=== PATIENT | male | born 1965 | race Caucasian/White ===

== ENCOUNTER 2025-01-08 14:37 | Inpatient (IN) | payer SELFPAY ==
[2025-01-08 14:40] VITALS: BP 175/100; PULSE 99; RESP 16; TEMP 36.8; O2SAT 98
--- NOTE | 2025-01-08 15:16 | ECG_ITS ---
[facility] Test Date: 2025-01-08 Pat Name: Jose Lewis Department: Room: Gender: Male Set Up Person: : 1965 Requested By: Jatin Cates Order Number: [id number] Reading MD: LUCIANO LEUNG Measurements Intervals [place] Rate: 100 P: 53 SC: 157 QRS: -34 QRSD: 81 T: 63 QT: 337 QTc: 435 Interpretive Statements SINUS TACHYCARDIA LEFT AXIS DEVIATION [QRS AXIS < -30] No previous ECG available for comparison Electronically Signed On 01-08-2025 23:08:45 CDT by LUCIANO LEUNG [id number]
--- NOTE | 2025-01-08 16:39 | PC.NURSE ---
Pt taken to room with sister and male family member present. Pts sister pulled me aside and states, I meant to tell you he needs to go to the stress unit not rehab. He put a gun to his head today. I forgot to tell you that. Provider notified. Pt taken to room 9 with sitter. Primary nurse made aware of situation.
--- NOTE | 2025-01-08 16:54 | XRR_ITS ---
PROCEDURE INFORMATION: Exam: XR Left Shoulder Exam date and time: 01/08/2025 4:57 PM Age: 59 years old Clinical indication: Pain; Shoulder; Left; Additional info: Fall/pain TECHNIQUE: Imaging protocol: Radiologic exam of the left shoulder. Views: 2 or more views. COMPARISON: CR XR chest 1V portable [id number] 11/10/2024 16:56 FINDINGS: Bones/joints: Jjto-xo-hjpodzty osteoarthritic/degenerative changes as evidenced by spurring are noted about the acromioclavicular/AC joint. These are similar to the prior portable chest plain film from 11/10/2024 Soft tissues: Snap artifact overlies the upper left chest region. XR/XR shoulder LT min 2V* [id number] IMPRESSION: 1. No acute osseous plain-film findings of the left shoulder. 2. Atql-ep-zqtdkxwu degenerative changes at the AC joint.
--- NOTE | 2025-01-08 16:54 | XRR_ITS ---
PROCEDURE INFORMATION: Exam: XR Chest Exam date and time: 01/08/2025 4:56 PM Age: 59 years old Clinical indication: Pain; Chest pressure; Additional info: Chest pain TECHNIQUE: Imaging protocol: Radiologic exam of the chest. Views: 1 view. COMPARISON: No relevant prior studies available. FINDINGS: Lungs: Lungs appear to be grossly clear. No consolidation. Pleural spaces: Costophrenic angles are well demarcated. No pleural effusion. No pneumothorax. Heart/Mediastinum: There is mild widening of the superior mediastinum noted to be present. Cardiac silhouette is in the range of normal. Bones/joints: Mild convexity of the thoracic spine is directed to the right with degenerative spurring seen particularly along its mid to lower aspects. Other findings: The gastric air bubble may be displaced medially question splenomegaly. XR/XR chest 1V portable [id number] IMPRESSION: 1. Mild widening of the superior mediastinum with no prior studies available for comparison and further correlation and follow-up suggested in order to exclude adenopathy. 2. Suspected splenomegaly.
--- NOTE | 2025-01-08 16:55 | ED_ITS ---
HPI - General Adult 2 General: Chief complaint: Extremity Problem,Nontraumatic Stated complaint: stroke like symptoms Time Seen by Provider: 01/08/25 16:40 Source: patient and family Mode of arrival: wheelchair Limitations: no limitations History of Present Illness: Patient is a 59-year-old male who presents to ED today with multiple complaints. Apparently he was initially triaged as a strokelike symptoms given some left arm numbness he had complained about at time of arrival. He then later complained of chest pain and was a heart attack rule out but then later tells me he is intoxicated and has a history of chronic alcohol abuse and is suicidal and needs to be admitted to NPU. Patient tells me he has been having intermittent paresthesias to his left arm that has been present for quite a while . He does report a fall approximately 4 to 5 days ago onto the left shoulder and has had pain here since. Denies striking his head or LOC. He apparently had a brief episode of chest pain on the way to the emergency department but is asymptomatic at time of my examination. He is visibly intoxicated during my initial encounter. Family states he is chronically depressed. He reportedly had a gun to his mouth earlier this morning and almost pulled the trigger but family was able to take the gun. Onset (ago): unknown (chronicity varies depending on complaint) Relieving factors: none Exacerbating factors: other (movement of L shoulder reproduces pain) Associated symptoms: Reports chest pain (none now); Deny confusion, dyspnea, headache(s), malaise, nausea, rash, palpitations, syncope or vomiting Treatments prior to arrival: none Related Data Allergies Allergy/AdvReac Type Severity Reaction Status Date / Time No Known Allergies Allergy Verified 01/08/25 14:48 Review of Systems 2 Const: Denies: fever(s), chills, body aches, fatigue or malaise Eyes: Denies: change in vision, blurry vision, photophobia, floaters or seeing flashes Card: Reports: chest pain (none now); Denies: palpitations, irregular heart rhythm, edema, swelling of feet/ankles, lightheadedness, syncope, pre-syncope, dyspnea on exertion, orthopnea, leg pain with exertion or acrocyanosis Resp: Denies: dyspnea, productive cough or pain on inspiration GI: Denies: abdominal pain, nausea, vomiting, heartburn or diarrhea : Denies: difficulty urinating or dysuria Musc: Reports: extremity pain (L arm) and joint pain (L shoulder); Denies: neck pain, back pain or extremity swelling Skin/Breast: Denies: rash Neuro: Reports: sensory changes (intermittent paresthesias left arm); Denies: headache(s), weakness in extremities, lack of coordination, difficulty walking, frequent falls, dizziness, confusion or Slurred speech present Physical Exam 2 Const: COMMON NORMALS: no acute distress, average body habitus, patient oriented x3, healthy appearing, alert and well nourished GENERAL APPEARANCE: cooperative and other (intoxicated) ORIENTATION/CONSCIOUSNESS: Yes awake, Yes oriented to person, Yes oriented to place and Yes oriented to time HENMT: COMMON NORMALS: normocephalic and atraumatic HEAD & SCALP: normal to inspection, normocephalic and atraumatic FACE & SINUS: normal facial exam and face symmetric Eye: COMMON NORMALS: Equal, round and reactive pupils present and EOMs intact bilaterally GENERAL EYE: appearance normal, both eyes and all related structures and normal light reflex PUPIL: Yes Equal, round and reactive pupils present DIRECT OPHTHALMOSCOPY: Yes normal light reflex Neck/C-Spine: COMMON NORMALS: full ROM and no lymphadenopathy GENERAL: Yes normal visual inspection Chest: COMMONS NORMALS: normal inspection of the chest and normal palpation of entire chest wall Resp: COMMON NORMALS: normal respiratory effort and clear to auscultation bilaterally AUSCULTATION: clear to auscultation bilaterally Cardio: COMMON NORMALS: regular rate and regular rhythm RATE: regular rate RHYTHM: regular rhythm GI: COMMON NORMALS: Normal to inspection, nondistended, normoactive bowel sounds present, Soft to palpation, non-tender and no masses PALPATION: Yes Soft to palpation Back/Pelvis: COMMON NORMALS: thoracic and lumbar spine normal to inspection and no thoracic nor lumbar tenderness Extremity: COMMON NORMALS: normal to inspection, full ROM, capillary refill normal, no joint enlargement, no clubbing, cyanosis or edema, no calf tenderness and no pedal edema GENERAL: Yes normal exam except as noted LEFT UPPER EXTREMITY: Yes shoulder joint (TTP with palpation and ROM of shoulder; no deformities noted) Left shoulder joint: Yes neurovascular exam (normal) Neuro: COMMON NORMALS: patient oriented x3, moves all extremities, no focal motor deficits, no sensory deficits noted and gait normal S ENSORIUM/ORIENTATION: Yes alert, Yes oriented to person, Yes oriented to place and Yes oriented to time OTHER: NIH 0. States he is not having L arm paresthesias currently Skin: COMMON NORMALS: no rashes or lesions noted GENERAL SKIN EXAM: no rashes or lesions noted Course 2 Vital Signs: Vital signs: Vital Signs Temperature 98.3 F 01/08/25 14:40 Pulse Rate 99 01/08/25 14:40 Respiratory Rate 16 01/08/25 14:40 Blood Pressure 175/100 01/08/25 14:40 Pulse Oximetry 98 01/08/25 14:40 Oxygen Delivery Me thod Room Air 01/08/25 14:40 MDM - General Adult Medical Decision Making Patient's NIH is 0. He has not had any chest pain during his stay here. His EKG is nonischemic. His baseline troponin is normal. CXR official radiology read does mention mild widening of the superior mediastinum with correlation to exclude adenopathy-had reported no previous comparison films but it looks like we do have back in 2010 and I do not visualize any change. Patient is cleared medically. He was placed on a 96-hour hold for his depression and suicidal ideations. Patient will be admitted to Dr. Schwartz to NPU. Medical Records I reviewed the patient's medical records. Lab Data I reviewed the patient's lab results. 01/08/25 17:26 01/08/25 17:26 Radiology Impressions Chest X-Ray 01/08/25 16:54 IMPRESSION: 1. Mild widening of the superior mediastinum with no prior studies available for comparison and further correlation and follow-up suggested in order to exclude adenopathy. 2. Suspected splenomegaly. Shoulder X-Ray 01/08/25 16:54 IMPRESSION: 1. No acute osseous plain-film findings of the left shoulder. 2. Reul-zv-darakctx degenerative changes at the AC joint. Laboratory Results WBC 4.86 10^3/uL (3.29-11.43) 01/08/25 17: RBC 5.39 10^6/uL (3.85-5.65) 01/08/25 17: Hgb 16.60 g/dL (11.27-16.99) 01/08/25 17: Hct 49.0 % (37-53) 01/08/25 17:26 MCV 90.9 fl (82-101) 01/08/25 17:26 MCH 30.8 pg (27-33) 01/08/25 17:26 MCHC 33.9 g/dL (30-55) 01/08/25 17:26 RDW 13.8 % (12.1-15.1) 01/08/25 17:26 Plt Count 286 10^3/cmm (157-399) 01/08/25 17:26 MPV 8.9 fL (7.4-10.4) 01/08/25 17:26 Neut % (Auto) 47.4 % 01/08/25 17:26 Lymph % (Auto) 39.3 % 01/08/25 17:26 [place] % (Auto) 11.9 % 01/08/25 17:26 Eos % (Auto) 0.2 % 01/08/25 17:26 Baso % (Auto) 0.8 % 01/08/25 17:26 Neut # (Auto) 2.30 10^3/uL (1.8-7.7) 01/08/25 17:26 Lymph # (Auto) 1.9 10^3/uL (0.8-4.8) 01/08/25 17:26 [place] # (Auto) 0.6 10^3/uL (0.2-0.9) 01/08/25 17:26 Eos # (Auto) 0.0 10^3/uL (0.0-0.8) 01/08/25 17:26 Baso # (Auto) 0.0 10^3/uL (0.0-0.1) 01/08/25 17:26 Nucleated RBC % (auto) 0 % 01/08/25 17:26 Nucleated RBCs # 0.0 /100WBC 01/08/25 17:26 Sodium 144 mmol/L (136-145) 01/08/25 17:26 Potassium 4.2 mmol/L (3.5-5.1) 01/08/25 17:26 Chloride 103 mmol/L (98-107) 01/08/25 17:26 Carbon Dioxide 22 mmol/L (22-29) 01/08/25 17:26 Anion Gap 23.2 (5-19) H 01/08/25 17:26 BUN 4 mg/dL (8-23) L 01/08/25 17:26 Creatinine 0.8 mg/dL (0.7-1.2) 01/08/25 17:26 GFR Calculation 98.6 mL/min (90-130) 01/08/25 17:26 Glucose 126 mg/dL (65-115) H 01/08/25 17:26 Calculated Osmolality 296 mOsm/kg (285-295) H 01/08/25 17:26 Calcium 8.9 mg/dL (8.5-10.5) 01/08/25 17:26 Total Bilirubin 0.3 mg/dL (0.15-1.2) 01/08/25 17:26 AST 62 U/L (0-40) H 01/08/25 17:26 ALT 65 U/L (0-41) H 01/08/25 17:26 Alkaline Phosphatase 116 U/L (40-130) 01/08/25 17:26 Troponin T Baseline 8 ng/L (0-15) 01/08/25 17:26 Total Protein 7.6 g/dL (6.6-8.7) 01/08/25 17:26 Albumin 4.6 g/dL (3.5-5.2) 01/08/25 17:26 Globulin 3.0 g/dL (1.3-4.6) 01/08/25 17:26 Salicylates < 0.3 mg/dL (3-10) L 01/08/25 17:26 Acetaminophen < 5.0 ug/mL (10-30) L 01/08/25 17:26 Ethyl Alcohol 329 mg/dL (0-10) H* 01/08/25 17:26 All radiology interpretation(s) finalized by discharge Discharge Plan Discharge Patient Disposition: Admitted As Inpatient Clinical Impression: Depression, Suicidal ideation, Paresthesia of left arm, Injury of left shoulder, Chronic alcohol abuse Condition: Stable Coding Level of Care Code ED An[employer] 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
--- NOTE | 2025-01-08 17:10 | PC.NURSE ---
96 hour hold rights read and reviewed with patient. Mario from security present during reading of rights. Patient verbalized understandings. Patient repeated over and over during reading of rights I cant do needles, you cant take my blood. This is why I am the town drunk not a druggy i just cant do needles. I don't want you to take my blood. This nurse told patient that we will have to get blood, but will come back. This nurse and Mario did dress patient out into green scrubs and placed patient belongings in locker.
--- NOTE | 2025-01-08 17:17 | ECG_ITS ---
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
[2025-01-08] MEDS: acetaminophen 500 mg Tablet 1000 MG PO (17:50)
[2025-01-08 17:54] LABS: Basophils % 0.8 %; Eosinophils % 0.2 %; Lymphocytes # 1.9 10^3/uL (0.8-4.8); Lymphocytes % 39.3 %; Mean Corpuscular HGB Conc 33.9 g/dL (30-55); Mean Corpuscular Hemoglobin 30.8 pg (27-33); Mean Corpuscular Volume 90.9 fl (82-101); Mean Platelet Volume 8.9 fL (7.4-10.4); Monocytes # 0.6 10^3/uL (0.2-0.9); Monocytes % 11.9 %; Neutrophils % 47.4 %; Nucleated Red Blood Cells % 0 %; Platelet Count 286 10^3/cmm (157-399); Red Blood Count 5.39 10^6/uL (3.85-5.65); Red Cell Distribution Width 13.8 % (12.1-15.1); White Blood Count 4.86 10^3/uL (3.29-11.43)
[2025-01-08 17:59] LABS: Troponin(5th) Baseline 8 ng/L (0-15)
[2025-01-08 18:01] LABS: Alanine Aminotransferase 65 U/L (0-41); Albumin Level 4.6 g/dL (3.5-5.2); Alkaline Phosphatase 116 U/L (40-130); Aspartate Amino Transferase 62 U/L (0-40); Blood Urea Nitrogen 4 mg/dL (8-23); Calcium 8.9 mg/dL (8.5-10.5); Carbon Dioxide 22 mmol/L (22-29); Chloride 103 mmol/L (98-107); Glomerular Filtration Rate 98.6 mL/min (90-130); Glucose 126 mg/dL (65-115); Osmolality Calculated 296 mOsm/kg (285-295); Sodium 144 mmol/L (136-145); Total Bilirubin 0.3 mg/dL (0.15-1.2); Total Protein 7.6 g/dL (6.6-8.7)
[2025-01-08 18:11] LABS: Acetaminophen < 5.0 ug/mL (10-30); Alcohol Level 329 mg/dL (0-10); Anion Gap 23.2 (5-19); Potassium 4.2 mmol/L (3.5-5.1); Salicylate < 0.3 mg/dL (3-10)
--- NOTE | 2025-01-08 18:54 | ECG_ITS ---
[facility]08 Pat Name: Jose Lewis Department: Room: Gender: Male Vp Client Services: : 1965 Requested By: Samantha Granda Order Number: [id number] Reading MD: LUCIANO LEUNG Measurements Intervals [place] Rate: 82 P: 61 WI: 157 QRS: -2 QRSD: 84 T: 48 QT: 367 QTc: 429 Interpretive Statements SINUS RHYTHM Compared to ECG 01/08/2025 17:17:17 Sinus tachycardia no longer present Left-axis deviation no longer present Electronically Signed On 01-08-2025 23:09:19 CDT by LUCIANO LEUNG [email or web address] [id number]
[2025-01-08 19:19] LABS: Amphetamines Screen Urine Negative (Negative); Barbiturates Screen Urine Negative (Negative); Benzodiazepines Screen Urine Negative (Negative); Cocaine Screen Urine Negative (Negative); Opiate Screen Urine Negative (Negative); PCP Screen Urine Negative (Negative); THC Screen Urine Negative (Negative)
--- NOTE | 2025-01-08 19:43 | PC.NURSE ---
Serial troponins cancelled per verbal order of Kalee ANTONIO.
[2025-01-08 19:58] VITALS: BP 161/67; PULSE 88; RESP 17; O2SAT 94
--- NOTE | 2025-01-08 20:19 | PC.NURSE ---
Nursing staff attempted to call report to NPU twice.
[2025-01-08 20:31] VITALS: BP 161/67; PULSE 88; O2SAT 94
[2025-01-08 21:19] VITALS: BP 138/93; PULSE 109; RESP 20; TEMP 36.8; O2SAT 92
[2025-01-08] MEDS: nicotine 4 mg lozenge MUCOUS MEM (21:43)
[2025-01-09] VITALS: BP 156/94; PULSE 73; RESP 18; O2SAT 97
[2025-01-09 04:00] VITALS: BP 173/91; PULSE 62; RESP 18; O2SAT 96
[2025-01-09 08:00] VITALS: BP 179/91; PULSE 63; RESP 18; TEMP 36.8; O2SAT 94
[2025-01-09] MEDS: folic acid 1 mg Tablet PO (08:16)
[2025-01-09] MEDS: thiamine 100 mg Tablet PO (08:16)
[2025-01-09] MEDS: multivitamin therapeutic Tablet 1 TAB PO (08:16)
[2025-01-09] MEDS: ondansetron 4 MG Tablet PO (08:16)
[2025-01-09] MEDS: LORazepam 2 mg Tablet PO (11:59)
[2025-01-09 12:00] VITALS: BP 164/88; PULSE 70; RESP 18; TEMP 37; O2SAT 99
[2025-01-09] MEDS: nicotine 4 mg lozenge MUCOUS MEM (13:15)
[2025-01-09 16:00] VITALS: BP 162/97; PULSE 81; RESP 18; TEMP 37; O2SAT 96
--- NOTE | 2025-01-09 16:51 | P.NPUHP_ITS ---
Providers/Chief Complaint 2 Admitting Physician: Hayden Schwartz MD Chief Complaint: stroke like symptoms HPI NPU History of Present Illness Jose Lewis is a 59 year old male with no previous history of inpatient psychiatric hospitalization who presented with a blood alcohol level of 329 to the emergency department at [facility]. He had initially presented with complaints of left arm numbness and chest pain and paresthesia in his left arm. Later during the evaluation the family members had stated that the patient was depressed and that he had taken a gun and placed it to his mouth earlier in the morning and had to be convinced not to pull the trigger. The patient on interview reports that he has been consuming alcohol since he was an adolescent. He reports the longest period of sobriety has been months. He reports drinking approximately 2 pints on a daily basis and reports an increase in tolerance over the past few months. He was not able to endorse any reason he is consuming more alcohol. He reports that he does have cravings for alcohol but states that his cravings for oral tobacco are more prominent. He denies any illicit drug use. He minimized any suicidal thoughts stating that he may have put a gun to himself but states that he has no recollection of this event. He denies any feelings of hopelessness or worthlessness. He reports that he realizes that the alcohol has prevented him from maintaining a job. He reports that efforts to cut down have largely been unsuccessful. He reports that he does not wish to consider any treatment for alcohol at this time and states that this episode will simply teach him to never drink again. He denies any history of boyd. He denies any history of auditory hallucinations or visual hallucinations. He reports having some adverse consequences from alcohol use including elevated liver function test. He reports no history of panic attacks. He denies any history of anxiety. He denies any feelings of hopelessness or worthlessness. He reports no sleep continuity disruption. He denied any symptoms suggestive of posttraumatic stress disorder. He had reported that he has had some occasional tremors while attempting to stop alcohol but denied any history of seizures. He had reported a history of blackouts. Psychiatric history: He reports no history of inpatient substance abuse or inpatient psychiatric treatment. He reports no previous medication trials or treatment for depression or anxiety. Substance abuse history: He reports a history of continued alcohol use for more than 40 years with a reported history of blackouts and no reported history of seizures. He reports no history of drug or alcohol treatment either inpatient or outpatient. He denies any history of opiate use, stimulant abuse, benzodiazepine abuse or hallucinogen abuse. Medical history: Recent injury to left shoulder with paresthesia of left arm Surgical history: None Allergies: No known drug allergies Legal history: Denies Medications: None Family psychiatric history: Alcoholism Social history: Patient was born in [place] and raised by his biological parents. He reports when his parents had split up his father had raised him and his siblings. He had reported no history of sexual physical or emotional abuse. He reported that he had no problems with learning in school but states that he dropped out of school in the eighth grade. He states he had been previously 1 time and has multiple kids as young as 15 and many in adulthood currently. He reports that [facility] and is unemployed. He reports that he is not on disability and reports that he has struggled with maintaining work. Meds NPU Home Medications ?Medication ?Instructions ?Recorded ?Confirmed ?Last Taken ?Type No Known Home Medications 01/09/2512/29 Unknown History Allergies Allergy/AdvReac Type Severity Reaction Status Date / Time No Known Allergies Allergy Verified 01/08/25 14:48 Mental Status Exam 2 MSE Comments: Patient had a anthony complexion with poor hygiene and a steady gait. There was no evidence of any abnormal involuntary motor movements, tics, or tremors appreciated. His speech was normal in regards to rate, rhythm, and prosody. His mood was described as okay. His affect was slightly restricted in range and mood incongruent. His thought process was linear, logical, and goal-directed. His thought content revealed no suicidal or homicidal ideation. He denied any auditory or visual hallucinations. He did not appear to be responding to internal stimuli. There was no evidence of delusional thinking. His attention span appeared fair. His recent and remote memory appeared grossly intact. He was alert and oriented to person, place, and time. His insight is poor. His judgment is poor. His impulse control appeared limited. Vitals/I&O/Wt Last Vital Signs Temp 98.6 F 01/09/25 12:00 Pulse 70 01/09/25 12:00 Resp 18 01/09/25 12:00 BP 164/88 01/09/25 12:00 Pulse Ox 99 01/09/25 12:00 O2 Del Method Room Air 01/08/25 21:16 Weight last 48 hrs Weight 81.647 kg Data NPU 01/08/25 17:26 01/08/25 17:26 A&P Assessment and plan (1) Adjustment disorder with depressed mood: (2) Suicidal ideation: (3) Chronic alcohol abuse: Plan 59-year-old male with alcohol abuse with limited insight and minimal motivation currently to consider alcohol treatment despite adverse consequences. He remains here on a 96-hour hold and will be monitored for alcohol withdrawal symptoms at this time. #1.? Engage patient in individual milieu and group therapy. #2?? Recommend sober living treatment at the highest level of care to which the patient is willing to commit #3??? CIWA for alcohol withdrawal #4?? TO-15 minute checks? #5?? Will attempt to gather collateral information, evaluate carefully while on a 96 hour hold. PDMP PDMP Reviewed: Not Reviewed Involuntary Hold Information 2 Hold Status: Legal Status: 96 Hour Hold Date/Time Hold Expires: 01/14/2025 1655 Attestations NPU 2 Medical Necessity Statement*: Inpatient hospitalization is medically necessary and deemed to be the clinically appropriate intervention at this time. Medications will be adjusted and initiated as indicated.? The patient will be hospitalized for at least 2 midnights.? The patient?s likely length of stay is 2-3 days. ? Coding Level of Care Code Acute Code for Chg Fwd Diagnoses Adjustment disorder with depressed mood F43.21 Suicidal ideation R45.851 Chronic alcohol abuse F10.10
[2025-01-09 20:00] VITALS: BP 162/90; PULSE 92; RESP 19; TEMP 36.8; O2SAT 99
[2025-01-10] VITALS (7 sets, daily range): BP systolic 109–170; BP diastolic 77–100; PULSE 59–80; RESP 17–18; TEMP 36.6–36.8; O2SAT 95–98
[2025-01-10] MEDS: thiamine 100 mg Tablet PO (08:37)
[2025-01-10] MEDS: folic acid 1 mg Tablet PO (08:37)
[2025-01-10] MEDS: multivitamin therapeutic Tablet 1 TAB PO (08:37)
[2025-01-10] MEDS: nicotine 2 mg Gum BUCCAL ×2 (08:44→18:00)
[2025-01-10] MEDS: cloNIDine 0.1 mg Tablet 0.2 MG PO (09:32)
--- NOTE | 2025-01-10 09:53 | PC.NURSE ---
Pt has been having elevated bp readings. The reading at approx 0700 was 170/95. Dr. Schwartz ordered a one time 0.2mg. Will recheck bp reading.
--- NOTE | 2025-01-10 16:46 | P.NPUPN_ITS ---
Subjective NPU 2 Subjective: 59-year-old male admitted with alcohol d ependence with a blood alcohol level of 319. The patient continued minimize any problems with alcohol related withdrawal despite a change in blood pressure and some increased tremor reported. The patient had stated that he would simply stop alcohol by never drinking again and continued to reiterate that he did not wish to consider any alcohol treatment through therapy or through groups. He reported no suicidal thoughts currently. He had reported that he was feeling better. He had reported having consumed alcohol for several years and reported that his longest period of sobriety was for a few months. Mental Status Exam 2 MSE Comments: Patient had a anthony complexion with poor hygiene and a steady gait. There was no evidence of any abnormal involuntary motor movements, tics, or tremors appreciated. His speech was normal in regards to rate, rhythm, and prosody. His mood was described as good. His affect was slightly restricted in range and mood incongruent. His thought process was linear, logical, and goal- directed. His thought content revealed no suicidal or homicidal ideation. He denied any auditory or visual hallucinations. He did not appear to be responding to internal stimuli. There was no evidence of delusional thinking. His attention span appeared fair. His recent and remote memory appeared grossly intact. He was alert and oriented to person, place, and time. His insight is poor. His judgment is poor. His impulse control appeared limited. Vitals/I&O/Wt Last Vital Signs Temp 98 F 01/10/25 12:00 Pulse 73 01/10/25 12:00 Resp 18 01/10/25 12:00 BP 129/89 01/10/25 12:00 Pulse Ox 98 01/10/25 12:00 O2 Del Method Room Air 01/10/25 04:00 Data NPU 01/08/25 17:26 01/08/25 17:26 A&P Assessment and plan (1) Adjustment disorder with depressed mood: (2) Suicidal ideation: (3) Chronic alcohol abuse: Plan 59-year-old male with alcohol abuse with limited insight and minimal motivation currently to consider alcohol treatment despite adverse consequences. He remains here on a 96-hour hold and will be monitored for alcohol withdrawal symptoms at this time. #1.? Engage patient in individual milieu and group therapy. #2?? Recommend sober living treatment at the highest level of care to which the patient is willing to commit #3??? CIWA for alcohol withdrawal #4?? TO-15 minute checks? #5?? Will attempt to gather collateral information, evaluate carefully while on a 96 hour hold. PDMP PDMP Reviewed: Not Reviewed Involuntary Hold Information 2 Hold Status: Legal Status: 96 Hour Hold Date/Time Hold Expires: 01/14/2025 1655 Attestations NPU 2 Medical Necessity Statement*: Inpatient hospitalization is medically necessary and deemed to be the clinically appropriate intervention at this time. Medications will be adjusted and initiated as indicated.? The patient?s likely length of stay is 2-3 days. ? Coding Level of Care Code Acute Code for Chg Fwd Diagnoses Adjustment disorder with depressed mood F43.21 Suicidal ideation R45.851 Chronic alcohol abuse F10.10
--- NOTE | 2025-01-11 00:32 | PC.NURSE ---
vs not completed par charge nurse resp 16
[2025-01-11 04:00] VITALS: BP 122/79; PULSE 56; RESP 18; TEMP 36.4; O2SAT 99
[2025-01-11 08:00] VITALS: BP 129/83; PULSE 73; RESP 18; TEMP 36.6; O2SAT 98
[2025-01-11] MEDS: multivitamin therapeutic Tablet 1 TAB PO (08:52)
[2025-01-11] MEDS: thiamine 100 mg Tablet PO (08:52)
[2025-01-11] MEDS: folic acid 1 mg Tablet PO (08:52)
[2025-01-11 12:00] VITALS: BP 125/82; PULSE 82; RESP 18; TEMP 36.6; O2SAT 99
[2025-01-11] MEDS: nicotine 2 mg Gum BUCCAL ×2 (12:48→19:14)
[2025-01-11 13:56] VITALS: BP 121/77; PULSE 55; RESP 18; TEMP 36.9; O2SAT 99
--- NOTE | 2025-01-11 15:21 | P.NPUPN_ITS ---
Subjective NPU 2 Subjective: 59-year-old male admitted with alcohol d ependence with a blood alcohol level of 319. The patient had required as needed of Ativan yesterday for alcohol related withdrawal. The patient reported no side effects from the medication. He had reported a history of hypertension and reported that he had felt calmer after receiving clonidine for his elevated blood pressure. He had been compliant on the milieu and reported that his mood was better. He had minimized any suicidal thoughts at this time. He continued to report that he did not wish to have any further treatment for alcohol abuse. He denied any feelings of hopelessness or worthlessness. Mental Status Exam 2 MSE Comments: Patient had a anthony complexion with improved hygiene and a steady gait. There was no evidence of any abnormal involuntary motor movements, tics, or tremors appreciated. His speech was normal in regards to rate, rhythm, and prosody. His mood was described as better. His affect remained restricted in range and mood incongruent. His thought process was linear, logical, and goal-directed. His thought content revealed no suicidal or homicidal ideation. He denied any auditory or visual hallucinations. He did not appear to be responding to internal stimuli. There was no evidence of delusional thinking. His attention span appeared fair. His recent and remote memory appeared grossly intact. He was alert and oriented to person, place, and time. His insight is poor. His judgment is poor. His impulse control appeared limited. Vitals/I&O/Wt Last Vital Signs Temp 98 F 01/11/25 08:00 Pulse 73 01/11/25 08:00 Resp 18 01/11/25 08:00 BP 129/83 01/11/25 08:00 Pulse Ox 98 01/11/25 08:00 O2 Del Method Room Air 01/11/25 04:00 Data NPU 01/08/25 17:26 01/08/25 17:26 A&P Assessment and plan (1) Adjustment disorder with depressed mood: (2) Suicidal ideation: (3) Chronic alcohol abuse: Plan 59-year-old male with alcohol abuse with limited insight and minimal motivation currently to consider alcohol treatment despite adverse consequences. He remains here on a 96-hour hold and will be monitored for alcohol withdrawal symptoms at this time. #1.? Engage patient in individual milieu and group therapy. #2?? Recommend sober living treatment at the highest level of care to which the patient is willing to commit #3??? CIWA for alcohol withdrawal. No clear hx of DT, may consider d/c tommorow. #4?? TO-15 minute checks? #5?? Will attempt to gather collateral information, evaluate carefully while on a 96 hour hold. PDMP PDMP Reviewed: Not Reviewed Involuntary Hold Information 2 Hold Status: Legal Status: 96 Hour Hold Date/Time Hold Expires: 01/14/2025 1655 Attestations NPU 2 Medical Necessity Statement*: Inpatient hospitalization is medically necessary and deemed to be the clinically appropriate intervention at this time. Medications will be adjusted and initiated as indicated.? The patient?s likely length of stay is 1-2 days. ? Coding Level of Care Code Acute Code for Chg Fwd Diagnoses Adjustment disorder with depressed mood F43.21 Suicidal ideation R45.851 Chronic alcohol abuse F10.10
[2025-01-11 19:43] VITALS: BP 134/82; PULSE 62; RESP 18; TEMP 36.7; O2SAT 98
[2025-01-12 05:00] VITALS: BP 141/83; PULSE 73; RESP 18; TEMP 36.6; O2SAT 100
[2025-01-12 06:00] VITALS: BMI 26.2
[2025-01-12] MEDS: multivitamin therapeutic Tablet 1 TAB PO (08:54)
[2025-01-12] MEDS: thiamine 100 mg Tablet PO (08:54)
[2025-01-12] MEDS: folic acid 1 mg Tablet PO (08:54)
[2025-01-12] MEDS: nicotine 2 mg Gum BUCCAL (10:13)
--- NOTE | 2025-01-12 11:01 | P.NPUDS_ITS ---
Diagnoses at Discharge Discharge Diagnosis (1) Adjustment disorder with depressed mood: Status: Acute (2) Suicidal ideation: Status: Acute (3) Chronic alcohol abuse: Status: Acute Reason for Visit Reason for Visit: stroke like symptoms Brief History: History of Present Illness Jose Lewis is a 59 year old male with no previous history of inpatient psychiatric hospitalization who presented with a blood alcohol level of 329 to the emergency department at [facility]. He had initially presented with complaints of left arm numbness and chest pain and paresthesia in his left arm. Later during the evaluation the family members had stated that the patient was depressed and that he had taken a gun and placed it to his mouth earlier in the morning and had to be convinced not to pull the trigger. The patient on interview reports that he has been consuming alcohol since he was an adolescent. He reports the longest period of sobriety has been months. He reports drinking approximately 2 pints on a daily basis and reports an increase in tolerance over the past few months. He was not able to endorse any reason he is consuming more alcohol. He reports that he does have cravings for alcohol but states that his cravings for oral tobacco are more prominent. He denies any illicit drug use. He minimized any suicidal thoughts stating that he may have put a gun to himself but states that he has no recollection of this event. He denies any feelings of hopelessness or worthlessness. He reports that he realizes that the alcohol has prevented him from maintaining a job. He reports that efforts to cut down have largely been unsuccessful. He reports that he does not wish to consider any treatment for alcohol at this time and states that this episode will simply teach him to never drink again. He denies any history of boyd. He denies any history of auditory hallucinations or visual hallucinations. He reports having some adverse consequences from alcohol use including elevated liver function test. He reports no history of panic attacks. He denies any history of anxiety. He denies any feelings of hopelessness or worthlessness. He reports no sleep continuity disruption. He denied any symptoms suggestive of posttraumatic stress disorder. He had reported that he has had some occasional tremors while attempting to stop alcohol but denied any history of seizures. He had reported a history of blackouts. Psychiatric history: He reports no history of inpatient substance abuse or inpatient psychiatric treatment. He reports no previous medication trials or treatment for depression or anxiety. Substance abuse history: He reports a history of continued alcohol use for more than 40 years with a reported history of blackouts and no reported history of seizures. He reports no history of drug or alcohol treatment either inpatient or outpatient. He denies any history of opiate use, stimulant abuse, benzodiazepine abuse or hallucinogen abuse. Medical history: Recent injury to left shoulder with paresthesia of left arm Surgical history: None Allergies: No known drug allergies Legal history: Denies Medications: None Family psychiatric history: Alcoholism Social history: Patient was born in [place] and raised by his biological parents. He reports when his parents had split up his father had raised him and his siblings. He had reported no history of sexual physical or emotional abuse. He reported that he had no problems with learning in school but states that he dropped out of school in the eighth grade. He states he had been previously 1 time and has multiple kids as young as 15 and many in adulthood currently. He reports that he currently lives in [facility] and is unemployed. He reports that he is not on disability and reports that he has struggled with maintaining work. Hospital Course Hospital Course During the hospitalization, the patient had routine laboratory studies which were within normal limits except for a few outliers.? He had minimal alcohol related withdrawal symptoms with no use of ativan for withdrawal over the last 24 hours of his hospital stay. Additionally, there was a general medical evaluation which was also within normal limits and revealed no new acute processes.? At the time of discharge, lethality was denied. ? Mood and anxiety were well managed.? The patient endorsed a plan to avoid all drugs of abuse and follow up with the aftercare recommendations of the treatment team.? The patient was evaluated and deemed to be absent credible lethality and had achieved the maximum benefit from an inpatient hospitalization, and so was discharged. He had expressed minimal interest in stopping the use of alcohol and did not wish for outpatient medication management or substance abuse treatment at this time. ? Involuntary Hold Information Hold Status: Legal Status: 96 Hour Hold Date/Time Hold Expires: 01/14/2025 2238 Mental Status Exam MSE Comments: Patient had a anthony complexion with improved hygiene and a steady gait. There was no evidence of any abnormal involuntary motor movements, tics, or tremors appreciated. His speech was normal in regards to rate, rhythm, and prosody. H is mood was described as good. His affect was euthymic on discharge. His thought process was linear, logical, and goal-directed. His thought content revealed no suicidal or homicidal ideation. He denied any auditory or visual hallucinations. He did not appear to be responding to internal stimuli. There was no evidence of delusional thinking. His attention span appeared fair. His recent and remote memory appeared grossly intact. He was alert and oriented to person, place, and time. His insight is poor. His judgment is fair. His impulse control appeared fair. Discharge Data Studies Completed and Pending: Completed Studies During Hospitalization Category Date Time Status XR chest 1V karina ble [id number] Urgent Exams 01/08/25 16:54 Completed XR shoulder LT mi n 2V* [id number] Stat Exams 01/08/25 16:54 Completed Radiology Impressions Chest X-Ray 01/08/25 16:54 IMPRESSION: 1. Mild widening of the superior media stinum with no prior studies available for comparison and further correlation and follow-up suggested in order to exclude adenopathy. 2. Suspected splenomegaly. Shoulder X-Ray 01/08/25 16:54 IMPRESSION: 1. No acute osseous plain-film finding s of the left shoulder. 2. [id number] degenerative gomez es at the AC joint. Laboratory Results WBC 4.86 10^3/uL (3.2 9-11.43) 01/08/25 17:26 RBC 5.39 10^6/uL (3.8 5-5.65) 01/08/25 17:26 Hgb 16.60 g/dL (11.27 -16.99) 01/08/25 17:26 Hct 49.0 % (37-53) 01/08/25 17:26 MCV 90.9 fl (82-101) 01/08/25 17:26 MCH 30.8 pg (27-33) 01/08/25 17:26 MCHC 33.9 g/dL (30-55) 01/08/25 17:26 RDW 13.8 % (12.1-15.1 ) 01/08/25 17:26 Plt Count 286 10^3/cmm (157 -399) 01/08/25 17:26 MPV 8.9 fL (7.4-10.4) 01/08/25 17:26 Neut % (Auto) 47.4 % 01/08/25 17:26 Lymph % (Auto) 39.3 % 01/08/25 17:26 Lipscomb % (Auto) 11.9 % 01/08/25 17:26 Eos % (Auto) 0.2 % 01/08/25 17:26 Baso % (Auto) 0.8 % 01/08/25 17:26 Neut # (Auto) 2.30 10^3/uL (1.8 -7.7) 01/08/25 17:26 Lymph # (Auto) 1.9 10^3/uL (0.8- 4.8) 01/08/25 17:26 Lipscomb # (Auto) 0.6 10^3/uL (0.2- 0.9) 01/08/25 17:26 Eos # (Auto) 0.0 10^3/uL (0.0- 0.8) 01/08/25 17:26 Baso # (Auto) 0.0 10^3/uL (0.0- 0.1) 01/08/25 17:26 Nucleated RBC % (a uto) 0 % 01/08/25 17:26 Nucleated RBCs # 0.0 /100WBC 01/08/25 17:26 Sodium 144 mmol/L (136-1 45) 01/08/25 17:26 Potassium 4.2 mmol/L (3.5-5 .1) 01/08/25 17:26 Chloride 103 mmol/L (98-10 7) 01/08/25 17:26 Carbon Dioxide 22 mmol/L (22-29) 01/08/25 17:26 Anion Gap 23.2 (5-19) H 01/08/25 17:26 BUN 4 mg/dL (8-23) L 01/08/25 17:26 Creatinine 0.8 mg/dL (0.7-1. 2) 01/08/25 17:26 GFR Calculation 98.6 mL/min (90-1 30) 01/08/25 17:26 Glucose 126 mg/dL (65-115 ) H 01/08/25 17:26 Calculated Osmolal ity 296 mOsm/kg (285- 295) H 01/08/25 17:26 Calcium 8.9 mg/dL (8.5-10 .5) 01/08/25 17:26 Total Bilirubin 0.3 mg/dL (0.15-1 .2) 01/08/25 17:26 AST 62 U/L (0-40) H 01/08/25 17:26 ALT 65 U/L (0-41) H 01/08/25 17:26 Alkaline Phosphata se 116 U/L (40-130) 01/08/25 17:26 Troponin T Baselin e 8 ng/L (0-15) 01/08/25 17:26 Total Protein 7.6 g/dL (6.6-8.7 ) 01/08/25 17:26 Albumin 4.6 g/dL (3.5-5.2 ) 01/08/25 17:26 Globulin 3.0 g/dL (1.3-4.6 ) 01/08/25 17:26 Salicylates < 0.3 mg/dL (3-10 ) L 01/08/25 17:26 Urine Opiates Scre en Negative ng/mL (N egative) 01/08/25 19:00 Acetaminophen < 5.0 ug/mL (10-3 0) L 01/08/25 17:26 Ur Barbiturates Sc reen Negative ng/mL (N egative) 01/08/25 19:00 Ur Phencyclidine S crn Negative ng/mL (N egative) 01/08/25 19:00 Ur Amphetamines Sc reen Negative ng/mL (N egative) 01/08/25 19:00 U Benzodiazepines Scrn Negative ng/mL (N egative) 01/08/25 19:00 Urine Cocaine Scre en Negative ng/mL (N egative) 01/08/25 19:00 U Marijuana (THC) Screen Negative ng/mL (N egative) 01/08/25 19:00 Ethyl Alcohol 329 mg/dL (0-10) H* 01/08/25 17:26 Vitals: Last Vital Signs Temp 97.9 F 01/12/25 05:00 Pulse 73 01/12/25 05:00 Resp 18 01/12/25 05:00 BP 141/83 01/12/25 05:00 Pulse Ox 100 01/12/25 05:00 O2 Del Method Room Air 01/12/25 05:00 Discharge Plan Discharge Patient Disposition: Home Condition: Stable Prescriptions: No Action No Known Home Medications Discharge Orders: Discharge Order (Routine); Ordered 01/12/25 Ordered By: Hayden Efren Discharge Diet: Usual diet Discharge Activity: Resume usual activity Patient Instructions: Opioid Safety Discharge Attestations NPU Time Spent in Discharge Care*: less than 30 min Specific Discharge Activities: Specific discharge activities: educating patient, discussing with medical case manager/social workers/dc planners and documenting/other paperwork Coding Level of Care Code Acute Code for Chg Fwd Diagnoses Adjustment disorder with depressed mood F43.21 Suicidal ideation R45.851 Chronic alcohol abuse F10.10
[2025-01-12 11:09] VITALS: BP 141/83; PULSE 73; RESP 18; TEMP 36.6; O2SAT 100
[2025-01-12 11:11] VITALS: BP 141/83; PULSE 73; RESP 18; TEMP 36.6; O2SAT 100
== END 2025-01-12 13:48 | disposition home or self-care (01) | DRG 881 ==
LOC: ER 18:57 → NP 19:57
PROVIDERS: Admitting Provider Psychiatry & Neurology Psychiatry; Emergency Provider Physician Assistant; Visit Provider Psychiatry & Neurology Psychiatry
DX: F43.21 Adjustment disorder with depressed mood (principal); R45.851 Suicidal ideations; F10.239 Alcohol dependence with withdrawal, unspecified; Y90.8 Blood alcohol level of 240 mg/100 ml or more
CPT/HCPCS: 36415; 71045; 73030; 80053; 80306; 80307; 84484; 85025; 93005; 97150; 97165; 99285; J9999; Q0162